=== PATIENT | female | born 1990 | race African-American/Black ===

== ENCOUNTER 2017-11-08 20:52 | Emergency (ER) | payer OTHER ==
[~2017-11-08] VITALS: Ht 160 cm; Wt 78.0 kg
[~2017-11-08 20:52] MED LIST: ALBUTEROL2.5 MG/0.1; FLEXERIL; FLEXERIL PO; HYDROCODON-ACE1 EAC7; IBUPROFEN 600600 M1 PO; NAPROSYN500 MG PO; NOHOMEMEDICATIONS; NORCO 5-325 TA1 EACH PO; ORTHO TRI-CYCL1 EACH PO; PEPCID20 MG PO; PREDNISONE 20 M20 M1 PO; PREDNISONE50 MG PO; TRAMADOL 50 MG50 MG; TRIAMCINOLONE A15 G1 TP; VENTOLIN HFA 1818 GM INH; ZOFRAN ODT4 MG PO
[2017-11-08 21:03] VITALS: BP 118/78
[2017-11-08] MEDS ORDERED: NORFLEX100 MG PO (21:35)
== END 2017-11-08 21:44 | disposition home or self-care (01) ==
LOC: ER 20:52
DX: S60.221A Contusion of right hand, initial encounter (principal); J45.909 Unspecified asthma, uncomplicated; Y04.2XXA Assault by strike against or bumped into by another person, initial encounter; Y93.89 Activity, other specified; Y92.89 Other specified places as the place of occurrence of the external cause; Y99.8 Other external cause status